=== PATIENT | female | born 1945 | race Caucasian/White ===

== ENCOUNTER → 2023-10-21 13:38 | Outpatient (REF) | payer MEDICARE, BC, SELFPAY | LOC: HWRAD 13:38 | PROVIDERS: ATTENDING PHYSICIAN Specialist; FAMILY PHYSICIAN Internal Medicine | DX: R31.0 Gross hematuria (principal) | CPT/HCPCS: 76857 ==

== ENCOUNTER 2023-10-24 21:29 | Inpatient (IN) | payer MEDICARE, BC, SELFPAY ==
[2023-10-24] VITALS (9 sets, daily range): BP systolic 143–183; BP diastolic 55–75; BMI 19.3
--- NOTE | 2023-10-24 18:35 | ED.GENMED ---
History of Present Illness
General
Chief Complaint: Heart Rate Problem
Source: patient
Exam Limitations: none
Time Seen by Provider: 10/24/23 18:15
Nursing documentation reviewed up to this point in time: agreed with
Travel History
Have you had any contact with someone who has COVID-19?: No
Do you have any symptoms of coronavirus? Fever > 100 degrees, chills, cough, shortness of breath, sore throat, loss of taste or smell, muscle aches, or headache?: No
History of Present Illness
History of Present Illness:
Patient presents to ED secondary to low heart rate noted at home, along with intermittent fatigue over the past 1 week. Today however, when she was outside walking, she felt shortness of breath, which prompted visit to ED. Patient has been talking
with her primary care physician regarding her low heart rate at home, in the 40s. She has an appointment with doctor of naprapathic medicine, Dr. Stephen in December. Denies chest pain. Denies nausea or vomiting. Denies loss of consciousness. Denies
diaphoresis. Patient is currently taking amlodipine 5 mg daily along with lisinopril. Of note, patient was admitted to the hospital last year secondary to low heart rate, which was treated with medication adjustment, namely discontinuation of
atenolol. Patient has not had any recurrent low heart rate episodes until this week.
Past History
Past History
ED Past Medical History: Arrthythmia (PVC's. SVT), HTN, Hypercholesterolemia and Other (Heart murmur)
ED Past Surgical History: None
Social History
Tobacco: Non-smoker
Alcohol: None
Personal:
Living: with family
Employment: Retired
Family History
Family History: Other (Father with pancreatic cancer, hypertension, brother with liver cancer)
Review of Systems
Review of Systems
Allergies reviewed?: Yes
All Other Systems: ROS reviewed and negative except as documented in HPI and ROS
Constitutional: Reports fatigue
EENT: Reports no symptoms
Respiratory: Reports trouble breathing
Cardiac: Reports no symptoms
ABD/GI: Reports no symptoms
: Reports no symptoms
Musculoskeletal: Reports no symptoms
Skin: Reports no symptoms
Neurological: Reports dizzy and weakness
Phy Exam
Physical Exam
Physical Exam:
Physical Exam
General: no apparent distress, not acutely ill. afebrile
Head: nc/at. eomi
Neck: supple. no meningeal signs.
Heart: bradycardic, no murmur. equal radial pulses.
Lungs: no acute respiratory distress. clear bilaterally
Abdomen: normal bowel sounds. not tender.
Neuro: alert and oriented. no focal neurological deficits
Skin: no rash
Psychiatric: well kept. interactive and cooperative
Extremities: no edema. no calf tenderness.
Course
Orders/Labs/Results
Orders:
Orders
10/24/23 Dinner
Cholesterol Lowering
At Your Request: Full Participation
Cholesterol Lowering: Sodium, 2 Gram
10/24/23 18:04
Electrocardiogram (*1) Urgent
Reason for Study: Bradycardia / Tachycardia
EKG- Treatment ONCE
10/24/23 18:50
Complete Blood Count/No Diff Urgent
Comprehensive Metabolic Panel Urgent
Magnesium Urgent
TSH Urgent
Troponin I Urgent
10/24/23 19:36
0.9% Sodium Chloride 500 ml [Nss] 500 ml IV BOLUS
10/24/23 19:57
Urinalysis Reflex To Culture Urgent
Date Specimen was Collected: 10/24/23
Time Specimen was Collected: 18:43
10/24/23 20:55
Admit/Transfer Patient As Directed
Co-Sign Provider:
Level of Care: Inpatient admission
Assign to:: IVU
Physician / Group: dr gato banegas
Diagnosis: 3:1 HB with symptomatic bradycardia
Reason for Hospitalization: close tele monitoring
poss pacemaker
Expected length of stay greater than two midnights?: Yes
ELOS- Estimated Length of Stay in days: 3
I certify the patient meets the requirements for IP care: Yes
10/24/23 20:56
Code Status As Directed
Resuscitation Status: Full Code
10/24/23 22:49
Activity As Directed
Activity Level: With Assistance
INT (Intravenous Needle Therapy) As Directed
Comment: maintain peripheral IV access
Intake/ Output As Directed
Frequency: Per unit guidelines
Pneumatic Compression Sleeves As Directed
Type: Knee high
Vital Signs As Directed
Frequency: q4h
Weight As Directed
Frequency: Once
DX Deep Vein Thrombosis Video Routine
10/25/23 06:00
Complete Blood Count/With Diff IN AM
Comprehensive Metabolic Panel IN AM
Abnormal Lab Results
10/24/23
18:50
BUN 18 H mg/dl
(7-17)
Glucose 102 H mg/dl
(70-99)
Magnesium 2.4 H mg/dl
(1.6-2.3)
AST 60 H U/L
(14-36)
ALT 49 H U/L
(0-35)
10/24/23 18:50
10/24/23 18:50
Vital Signs
Initial and Last Documented VS:
Initial Vital Signs
Temp Pulse Resp BP Pulse Ox
97.9 F 45 18 183/75 97
10/24/23 18:01 10/24/23 18:01 10/24/23 18:01 10/24/23 18:01 10/24/23 18:01
Last Documented Vital Signs
Temp Pulse Resp BP Pulse Ox
97.5 F 40 16 167/68 98
10/24/23 23:03 10/24/23 23:03 10/24/23 23:03 10/24/23 23:03 10/24/23 23:03
MDM/Problems Addressed
MDM/Problems Addressed:
Patient remains bradycardic in ED, along with 3-1 heart block noted on EKG. Otherwise, patient remains normotensive without any acute distress, during observation in ED.
Discussed with Dr. Banegas, cardiology, who agreed to admit the patient for further evaluation and treatment.
*EKG
Interpreted by ED Provider?: Yes
EKG Intrepretation Date: 10/24/23
Heart Rate: 43
Rate: bradycardiac
Rhythm: sinus
[place]: normal axis
Interval: second degree mobitz II
QRS Pattern: normal QRS
*Critical Care Note
Total Time (30-74mins, 75-104mins- exclusive of procedures): Not Applicable
ED Attending Note
-
Portions of this chart may have been created with voice recognition software.� Occasional wrong word or��sound alike� substitutions may have occurred due to the inherent limitations of voice recognition software.
Discharge Plan
Departure
Patient Disposition: Admit
Date of Disposition: 10/24/23
Time of Disposition: 20:38
Admit to: IVU
Presentation/result/management discussed w/ accepting MD/DO:
Condition: Fair
Discharge Problem:
Symptomatic bradycardia, AV heart block
Interventions
Interventions:
*Risk Screen - Suicide Last Done: 10/24/23 18:52
*General Assessment Last Done: 10/24/23 19:05
*Neglect/Abuse Screening Last Done: 10/24/23 18:52
ED- Fall Risk Assessment Last Done: 10/24/23 18:52
*ED COVID-19 Vaccine History Last Done: 10/24/23 18:52
*Nursing Disposition Last Done: 10/24/23 22:45
ED- Cardiac Assessment Last Done: 10/24/23 18:52
ED- Pulmonary Assessment Last Done: 10/24/23 19:05
Discharge Date and Time
Discharge Date/Time: 10/24/23 22:55
[2023-10-24 19:02] LABS: Hemoglobin 13.2 g/dL (12.0-16.0); Mean Corp Hgb Conc. 33.8 g/dL (33.0-37.0); Mean Corpuscular Hgb 30.8 pg (27.0-31.0); Mean Corpuscular Volume 91.1 fL (81.0-99.0); Mean Platelet Volume 10.3 fL (7.4-10.4); Platelet Count 213 10^3/uL (130-400); Red Blood Cell Count 4.28 10^6/uL (4.20-5.40); Red Cell Dist. Width 13.7 % (11.5-14.5); White Blood Cell Count 6.2 10^3/uL (4.8-10.8)
[2023-10-24 19:28] LABS: ALT (SGPT) 49 U/L (0-35); AST (SGOT) 60 U/L (14-36); Albumin 3.8 g/dl (3.5-5.0); Alkaline Phosphatase 104 U/L (38-126); Blood Urea Nitrogen 18 mg/dl (7-17); Calcium 9.6 mg/dl (8.4-10.2); Carbon Dioxide 29 mmol/L (22-30); Chloride 102 mmol/L (98-107); Estimated Creatinine Clearance 39 ml/min; Glucose 102 mg/dl (70-99); Magnesium 2.4 mg/dl (1.6-2.3); Potassium 4.1 mmol/L (3.5-5.1); Sodium 140 mmol/L (135-145); Total Bilirubin 0.6 mg/dl (0.2-1.3); Total Protein 6.5 g/dl (6.3-8.2); eGFR > 60.00
[2023-10-24 19:40] LABS: Troponin I < 0.012 ng/ml
[2023-10-24] MEDS: NSS 500 IV (19:56)
[2023-10-24 19:57] LABS: TSH 3.15 uIU/ml (0.47-4.68)
[2023-10-24 20:06] LABS: Urine Albumin Negative (Neg - Trace); Urine Bilirubin Negative (Negative); Urine Character Clear (Clear); Urine Color Yellow; Urine Glucose Negative (Negative); Urine Ketone Negative (Negative); Urine Leukocyte Negative (Negative); Urine Nitrite Negative (Negative); Urine Occult Blood Negative (Negative); Urine Specific Gravity 1.015 (<1.030); Urine Urobilinogen Negative (Neg - 1+)
--- NOTE | 2023-10-24 21:30 | HPS.HSE ---
Family Physician
-
Family Physician: Allan Vela
Chief Complaint
-
low HR
History of Present Illness
78 yo female with hx of HTN, SVT, HLD presents to ED secondary to low heart rate noted at home, along with intermittent fatigue over the past 1 week.� Today however, when she was outside walking, she felt shortness of breath, which prompted visit to
ED.� Patient has been talking with her primary care physician regarding her low heart rate at home, in the 40s.� She has an appointment with social insurance specialist, Dr. Stephen in December.� Denies chest pain.� Denies nausea or vomiting.� Denies loss of
consciousness.� Denies diaphoresis.� Patient is currently taking amlodipine 5 mg (was just recently increased from 2.5mg) daily along with lisinopril.�Was also on lisinopril/HCTZ but recently PCP d/c HTCZ. Of note, patient was admitted to the
hospital last year december secondary to low heart rate, which was treated with medication adjustment, namely discontinuation of atenolol.� Patient has not had any recurrent low heart rate episodes until this week.
Also of note, pt was formally a pt of Dr Minor, last seen in Aug 2023, but after his shelter, pt had decided to switch practices and see Dr Amanda Murillo, but no appt with her yet.
EKG :MARKED SINUS BRADYCARDIA ST and T WAVE ABNORMALITY, CONSIDER INFERIOR ISCHEMIA ABNORMAL ECG WHEN COMPARED WITH ECG OF 03-JAN-2023 19:17, VENT. RATE HAS DECREASED BY 23 BPM NON-SPECIFIC CHANGE IN ST SEGMENT IN INFERIOR LEADS T WAVE INVERSION NOW
EVIDENT IN INFERIOR LEADS.
While in room talking with pt HR was 60s-70s
Medical History
Past Medical History
Past Medical History: Reports Arrhythmia (svt, bradycardia 2:1 HB december 2022-resolved after dc of atenolol), HTN and Hypercholesterolemia
Past Surgical History: Reports None
Social History
Tobacco: Non-smoker
Alcohol: Occasional
Drug: None
Personal:
Living: With Family
Employment: Employed
Family History
Family History: Cancer (pancreatic-dad, brother -liver) and Hypertension (dad)
Allergies / Home Medications
Allergies reflects when Allergies were last updated in [id number].
Home Medications with original date entered in [id number]
Allergy/Medication List:
Allergies
Allergy/AdvReac Type Severity Reaction Status Date / Time
No Known Allergies Allergy Verified 10/24/23 18:00
Home Medications
atorvastatin 40 mg tablet 40 mg PO QPM
lisinopril 20 mg PO DAILY
ascorbic acid (vitamin C) 500 mg tablet (Vitamin C) 500 mg
biotin 2500 mg tablet PO DAILY
cholecalciferol (vitamin D3) 25 mcg (1,000 unit) tablet (Vitamin D3) 25 mcg PO DAILY
milk thistle 175 mg tablet 175 mg PO DAILY 12/30/22
zinc 50 mg tablet 50 mg PO DAILY 12/30/22
NIVA CBD
co Q10 100mg daily
Review of Systems
-
History Source: Patient
A 12 point ROS was completed and negative except as noted: Yes
Constitutional: Reports Fatigue
EENT: Reports No Symptoms
Respiratory: Reports No Symptoms
Cardiac: Reports Other (low HR in the 40s all week)
Abdomen/GI: Reports No Symptoms
: Reports No Symptoms
Musculoskeletal: Reports No Symptoms
Skin: Reports No Symptoms
Endocrine: Reports No Symptoms
Hematologic/Lymphatic: Reports No Symptoms
Psych: Reports No Symptoms
Physical Exam
Vital Signs
Vital Signs
Temp Pulse Resp BP Pulse Ox
97.9 F 81 16 151/70 98
10/24/23 18:01 10/24/23 21:00 10/24/23 21:00 10/24/23 21:00 10/24/23 21:00
Physical Exam
General: Well Developed, Well Nourished, No Apparent Distress, Comfortable and Conversant
HEENT: NormoCephalic, Moist mucous membranes and Good Dentition
Respiratory: Clear and Non Labored Respirations
Cardiac: S1/S2 and Regular Rhythm (HR 60-70s while in exam room with pt)
Breast: Deferred by me
GI: Soft, Non Tender and Normal Bowel Sounds
Rectal: Deferred by Provider
Genito-urinary: Clear Urine
Musculoskeletal: No Clubbing
Skin: Warm and Dry
Neuro: Awake and AO x 3
Psych: Anxious (worried about potentially needing pacemaker)
Laboratory Results
-
10/24/23 18:50
10/24/23 18:50
Laboratory Results
Total Bilirubin 0.6 mg/dl (0.2-1.3) 10/24/23 18:50
AST 60 U/L (14-36) H 10/24/23 18:50
ALT 49 U/L (0-35) H 10/24/23 18:50
Alkaline Phosphatase 104 U/L (38-126) 10/24/23 18:50
Troponin I < 0.012 ng/ml 10/24/23 18:50
Impression/Plan
-
IMPRESSION:
symptomatic bradycardia, second degree mobitz II
PLAN:
Admit to service of Dr Amanda Dimas
IVU
#bradycardia, symptomatic (fatigue), second degree mobitz II
- Had similar episodes in december 2022- but resolved after atenolol d/c
- ?related to recent increase in CCB amlodipine from 2.5mg to 5mg
-TSH normal
-hold bp meds (lisinopril, norvasc) and closely watch tele--> if tracy continues may need pacemaker.
-Low cholesterol diet
#HLD
- AST 60/ ALT 49--> hold lipitor for now
-repeat LFT
#HTN
-observe off BP meds
DVT proph: scd
Full code
--- NOTE | 2023-10-24 23:50 | PTCARENOTE ---
Received pt from ED. AOx3; pleasant. Tele- SB w/ 2nd deg HB. HR 30s. Pt offers no complaints at time. Oriented to unit and admission completed. Pneumatic compression devices on. Education provided. Verbalizes understanding. Pt currently in bed; call
janes w/in reach.
[2023-10-25] VITALS (7 sets, daily range): BP systolic 121–162; BP diastolic 59–98
[2023-10-25 06:02] LABS: % Basophils 1.2 % (0-2); % Eosinophils 2.3 % (0-6); % Immature Granulocytes 0.3 % (0-0.5); % Lymphocytes 40.1 % (20.5-51.1); % Monocytes 8.6 % (1.7-9.3); % Neutrophils 47.5 % (42.2-75.2); Absolute Basophils 0.1 10^3/uL (0-0.2); Absolute Eosinophils 0.2 10^3/uL (0-0.7); Absolute Lymphocytes 2.6 10^3/uL (1.2-3.4); Absolute Monocytes 0.6 10^3/uL (0.1-0.6); Hematocrit 35.5 % (37.0-47.0); Hemoglobin 12.1 g/dL (12.0-16.0); Mean Corp Hgb Conc. 34.1 g/dL (33.0-37.0); Mean Corpuscular Hgb 30.9 pg (27.0-31.0); Mean Corpuscular Volume 90.8 fL (81.0-99.0); Mean Platelet Volume 10.4 fL (7.4-10.4); Nucleated Red Blood Cells % 0 %; Platelet Count 204 10^3/uL (130-400); Red Blood Cell Count 3.91 10^6/uL (4.20-5.40); Red Cell Dist. Width 13.7 % (11.5-14.5); White Blood Cell Count 6.4 10^3/uL (4.8-10.8)
[2023-10-25 06:25] LABS: ALT (SGPT) 39 U/L (0-35); AST (SGOT) 48 U/L (14-36); Albumin 3.4 g/dl (3.5-5.0); Alkaline Phosphatase 84 U/L (38-126); Blood Urea Nitrogen 14 mg/dl (7-17); Carbon Dioxide 24 mmol/L (22-30); Chloride 105 mmol/L (98-107); Estimated Creatinine Clearance 48 ml/min; Glucose 85 mg/dl (70-99); Potassium 3.6 mmol/L (3.5-5.1); Sodium 139 mmol/L (135-145); Total Bilirubin 0.9 mg/dl (0.2-1.3); Total Protein 5.8 g/dl (6.3-8.2); eGFR > 60.00
--- NOTE | 2023-10-25 08:32 | CON.CAR ---
Consultation
Consultation Request
Date/Time Consultation Requested: October 25, 2023
Date/Time Consultation Performed: October 24, 2023
Requesting Provider: Emergency department
Performing Provider: Dr. Vega Dimas
Reason for Consultation: Symptomatic complete heart block
Medical History
-
Chief Complaint: Progressive fatigue and bradycardia
History of Present Illness:
70-year-old woman known to have intermittent type II heart block in the past presents to the emergency department now with progressive fatigue over the course of 1 week and marked bradycardia. Additionally she has had dyspnea on exertion over the
past week. Evaluation which included discussion with her primary care physician noted that she was bradycardic with heart rate in the 40s and was recommended she go to the emergency department. In the emergency department she is found to have
high-grade AV block with 3-1 AV conduction and a narrow QRS.
Past medical history:
-Type II second-degree AV block
-Hypertension
-SVT
-Dyslipidemia
Social History
Tobacco: Non-Smoker
Alcohol: Occasional
Drug: None
Personal:
Living: With Family
Employment: Employed
Family History
Family History: Reviewed & Not Pertinent
Allergies / Home Medications
Allergy/AdvReac Type Severity Reaction Status Date / Time
sulfamethoxazole Allergy Unknown Verified 10/25/23 01:39
[From Bactrim]
trimethoprim [From Bactrim] Allergy Unknown Verified 10/25/23 01:39
Medication Instructions Recorded Confirmed Type
atorvastatin 40 mg tablet 40 mg PO QPM High Cholesterol 08/11/17 10/24/23 History
ascorbic acid (vitamin C) 500 mg 500 mg PO DAILY Supplement 12/30/22 10/24/23 History
tablet (Vitamin C)
biotin 5 mg tablet 5 mg PO DAILY 12/30/22 10/24/23 History
cholecalciferol (vitamin D3) 25 25 mcg PO DAILY Supplement 12/30/22 10/24/23 History
mcg (1,000 unit) tablet (Vitamin
D3)
docusate sodium 100 mg capsule 100 mg PO HS Constipation 12/30/22 10/24/23 History
(Colace)
milk thistle 175 mg tablet 175 mg PO DAILY 12/30/22 10/24/23 History
zinc 50 mg tablet 50 mg PO DAILY 12/30/22 10/24/23 History
amlodipine 5 mg tablet 5 mg PO DAILY Blood Pressure 10/24/23 10/24/23 History
lisinopril 20 mg tablet 20 mg PO DAILY Blood Pressure 10/24/23 10/24/23 History
Review of Systems
-
History Source: Patient
All other systems: Negative unless noted
Constitutional: Fatigue (Progressive fatigue over the course of 1 week)
EENT: No Symptoms
Respiratory: Trouble Breathing (Dyspnea on exertion times approximately 1 week)
Cardiac: No Symptoms
Abdomen/GI: No Symptoms
: No Symptoms
Musculoskeletal: No Symptoms
Skin: No Symptoms
Neurological: No Symptoms
Endocrine: No Symptoms
Hematologic/Lymphatic: No Symptoms
Physical Exam
Vital Signs
Temp Pulse Resp BP Pulse Ox
97.9 F 49 20 146/65 97
10/25/23 07:36 10/25/23 07:00 10/25/23 07:36 10/25/23 05:02 10/25/23 07:36
Lab Results
10/25/23 05:08
10/25/23 05:08
Troponin I < 0.012 ng/ml 10/24/23 18:50
Physical Exam
General: Well Developed, Well Nourished, No Apparent Distress and Comfortable
HEENT: Normocephalic, Anicteric and Moist Mucous Membranes
Respiratory: Clear and Non Labored Respirations
Cardiac: S1/S2 (bradycardic), Regular Rhythm and Murmur (1/6 AHSM, no rubs, nl PMI)
Breast: Deferred by me
GI: Soft, Non Tender, Non Distended and Normal Bowel Sounds
Rectal: Deferred by Provider
Musculoskeletal: No Clubbing, No Cyanosis and No Edema
Skin: Warm and Dry
Neuro: Awake, Alert, Oriented, AO x 3 and No Motor Deficits
Psych: Calm
Impression / Plan
-
Impression:
-Symptomatic high-grade AV block
-Dyslipidemia
-Hypertension
Recommendations:
She has symptomatic type II second-degree AV block with no reversible cause. This seems to be progressive over the course of a couple of years given her prior history of intermittent type II second-degree AV block.
I had a long discussion with the patient and also her daughter who was on speaker phone. We discussed her indication for permanent pacemaker implantation. We discussed permanent pacemaker implantation procedure in detail as well as possible risks
and lifestyle impact of living with the pacemaker. All of their questions have been answered. Informed consent obtained by me. We will plan for permanent pacemaker implantation tomorrow.
Check echocardiogram in the morning
Maintain antihypertensive drug therapy
Maintain statin.
Data Reviewed
-
EKG: Tracing Personally Visualized and interpreted
Radiology: Image Personally Visualized and interpreted
Medical Tests (Nuc Med, Echo etc): Image Personally Visualized and interpreted
Labs: Labs Reviewed by me
Total Time Spent with Patient (in minutes): 80
--- NOTE | 2023-10-25 09:26 | PTCARENOTE ---
Rec'd pt from prev nsg shift AAOx3; Pt w/no c/o CP or SOB. Pt is anxious and a little tearful this AM re: prognosis & concern over getting a PPM. This RN went over restrictions & provided emotional support. MD was in to see pt & pt's concerns were
again discussed. Pt appears less anxious re: PPM procedure & is agreeable to the doctor's recommended plan of care. VS stable. HR is low in the 30's-40's. Pt reports no dizziness or lightheadedness w/that HR. Pt w/call marrero within reach & no addtl
needs at this time. Plan of care ongoing.
[2023-10-25] MEDS: ZESTRIL 20 MG PO (09:51)
[2023-10-25] MEDS: FLUSH (NSS) 1 FLUSH IV (09:52)
[2023-10-25] MEDS: LIPITOR 40 MG PO (17:22)
[2023-10-25] MEDS: NORVASC 5 MG PO (17:23)
--- NOTE | 2023-10-25 23:59 | PTCARENOTE ---
Second degree type 2 block. HR 30-40s. BP stable. Asymptomatic. Assessment per nursing flowsheet. NPO after midnight. Plan for PPM in AM. Questions answered about procedure.
[2023-10-26] VITALS (13 sets, daily range): BP systolic 128–185; BP diastolic 65–105
[2023-10-26] MEDS: ZESTRIL 20 MG PO (08:18)
--- NOTE | 2023-10-26 11:01 | CM ---
Reviewed chart. Met with Mrs. Candelario to review discharge plans. She states prior to admission she resides with her spouse in a two story home with three steps to enter. She states she has a full flight of steps to get to bedroom/full bathroom.
She states she has a powder room on the first floor. She states prior to admission she was independent with ambulation and adls. She states she does not have any DME in the home. She states she has a prescription plan and uses [facility].
Medical work-up in progress. The discharge plan is to return home with her spouse when medically stable.
[2023-10-26] MEDS: NORVASC 5 MG PO (11:14)
--- NOTE | 2023-10-26 13:59 | ITS.CL.PACE ---
Lead Customer Service Representative - Pacemaker Implant
Pacemaker Implant
Procedure Report:
PACEMAKER IMPLANT REPORT
Primary Care Provider: Dr Allan Vela
Date of Procedure: October 26, 2023
Procedure:
Implantation of dual-chamber permanent pacemaker utilizing the left bundle branch for conduction system pacing
Indication/Diagnosis:
Non-reversible symptomatic bradycardia due to second atrioventricular block
After informed consent was obtained, 'time out' was called and confirmed, the patient was prepped and draped in a sterile fashion. Lidocaine with epi was used for local anesthesia. Central venous access was obtained via subclavian venipuncture. An
incision was made along the left chest and a pre-pectoral pocket was formed. Using a Seldinger technique and peel-away sheaths, the pacing leads were placed under fluoroscopic guidance.
Fluoroscopy was used to determine likely anatomic site for left bundle branch pacing. The Medtronic C315 sheath was used to deliver the Medtronic 3830 Selectsecure pacing lead with the helix exposed just exposed from the sheath tip during continuous
monitoring when pacemapping the septum during gentle clockwise rotation to obtain a paced QRS morphology of a W pattern in lead V1. Once the suspected optimal site was identified, lead deployment was performed with several rapid rotations as paced
QRS morphology was intermittently monitored until a paced QRS complex in lead V1 demonstrated development of an R wave (QR).
Unipolar pacing impedance dropped by approximately 200 ohms suggesting it had reached the left ventricular subendocardial.
Stable VEgm injury current is present throughout lead position and at end of case.
Final unipolar pacing impedance is 900 Ohms
Unipolar pacing threshold is stable at 1 V @ 0.4 ms.
Final conduction system paced QRS complex duration is 95 ms
LVAT is 69 ms and peak V5 -> peak V1 timing is 42 ms
Right atrial lead was placed at the RAA.
Once testing (see below) showed adequate and stable function, the leads were secured using the suture sleeves. The pocket was liberally irrigated with antibiotic solution. The leads were connected to the generator header and the leads and
generator were placed within the pocket. Fluoroscopy confirmed stable lead position. The pocket was closed in the typical fashion.
Fluoroscopy was used to guide lead placement.
IMPLANTS:
Medtronic [id number], SN: [id number], Left Pectoral
RA: Medtronic 5076-45, SN: [id number], RAA
RV: Medtronic 3830 , SN:[id number], Interventricular septum at LBB
DEVICE TESTING:
Sensing: RA 1.4 mV, RV 9 mV
Capture: RA 0.5 V@0.4ms, RV 0.8 V@0.4ms
Ohms: RA 507, RV 890
FINAL PROGRAMMING
Sergei Pacing: DDD 60-130 ppm
COMPLICATIONS:
None
CONCLUSIONS:
1: Successful implant of dual chamber permanent pacemaker utilizing Left Bundle Branch conduction system capture for pacing.
RECOMMENDATIONS:
1. Post-op care (tele, CXR, IV abx)
2. In-Office wound check in 5-7 days
Copy to:
Dr Allna Vela
--- NOTE | 2023-10-26 16:02 | PTCARENOTE ---
pt left for PPM. report given to Stacey.
--- NOTE | 2023-10-26 18:34 | PTCARENOTE ---
received pt from recovery area. Aox3, no complaints of pain or discomfort. left arm immobilizer and dressing CDI. Educated on expected OOB time. Call marrero within reach
[2023-10-26] MEDS: LIPITOR 40 MG PO (19:16)
[2023-10-26] MEDS: TYLENOL 650 MG PO (19:16)
[2023-10-26] MEDS: ULTRAM 50 MG PO (21:38)
[2023-10-26] MEDS: ANCEF 5 IV (22:54)
--- NOTE | 2023-10-26 23:40 | PTCARENOTE ---
Addendum entered by Julio Valentin RN 10/27/23 05:08:
Upon return from pacemaker placement, pt wasn't admitted in the patient information center and BP did not come over to the computer. BP at 1826, 1830, 1845, 1900, and 1930 copied from monitor in room and manually put in.
Original Note:
Pt received start of shift, HR V-paced 70s-90s. BP stable. L upper chest dressing CDI. Pt bedrest for 1 hour post-op then ambulated w/ RN assistance to bathroom. Pt voided. Pt c/o 8/10 pain at pacemaker insertion site, PRN tylenol administered. new
rating 7/10. CVPA Ed Alcides notified, 50mg Ultram ordered and administered. Effective, new pain rating 4/10. Pt educated on activity restrictions in regards to pacemaker insertion and L upper extremity. Pt states understanding. Pt denies any CP,
SOB, or lightheadedness/dizziness at this time. Informed to notify RN if any changes, call marrero within reach.
[2023-10-27 03:54] VITALS: BP 148/81
[2023-10-27 04:36] LABS: Hematocrit 36.9 % (37.0-47.0); Hemoglobin 12.4 g/dL (12.0-16.0); Mean Corp Hgb Conc. 33.6 g/dL (33.0-37.0); Mean Corpuscular Hgb 31.1 pg (27.0-31.0); Mean Corpuscular Volume 92.5 fL (81.0-99.0); Mean Platelet Volume 10.1 fL (7.4-10.4); Platelet Count 178 10^3/uL (130-400); Red Blood Cell Count 3.99 10^6/uL (4.20-5.40); Red Cell Dist. Width 13.4 % (11.5-14.5)
[2023-10-27 05:02] LABS: Blood Urea Nitrogen 25 mg/dl (7-17); Calcium 8.8 mg/dl (8.4-10.2); Carbon Dioxide 27 mmol/L (22-30); Chloride 103 mmol/L (98-107); Estimated Creatinine Clearance 38 ml/min; Glucose 89 mg/dl (70-99); Magnesium 2.1 mg/dl (1.6-2.3); Potassium 3.7 mmol/L (3.5-5.1); Sodium 137 mmol/L (135-145); eGFR > 60.00
[2023-10-27] MEDS: ANCEF 5 IV (06:17)
[2023-10-27 07:05] VITALS: BP 136/88
--- NOTE | 2023-10-27 08:27 | PTCARENOTE ---
Rec'd pt this AM AAOx3 w/no c/o CP or SOB; pt does c/o 3/10 L chest wall pain at her new pacemaker insertion site. PO Tylenol administered as ordered. Pt's VS stable. Pt is V paced on telemetry monitoring. Pt w/call marrero within reach & no addtl
needs at this time. Plan of care ongoing.
[2023-10-27] MEDS: NORVASC 5 MG PO (09:01)
[2023-10-27] MEDS: ZESTRIL 20 MG PO (09:02)
[2023-10-27] MEDS: ULTRAM 50 MG PO (09:02)
[2023-10-27 10:25] VITALS: BP 135/81
[2023-10-27 11:02] VITALS: BP 165/96
--- NOTE | 2023-10-27 11:20 | PTCARENOTE ---
Pt w/HR in the 150's-160's. This RN in to see pt & pt talking on the phone w/her daughter. Pt asymptomatic w/no CP or palpitations. BP checked & pt 165/96 w/HR now in the 110's. Pt now anxious from nursing coming into the room quickly. Notified
Cardiology & they will be in to see pt shortly.
--- NOTE | 2023-10-27 12:05 | W.PN.CARDCBS ---
Addendum entered and electronically signed by Julio Bustamante DO 10/27/23 14:22:
I saw and examined the patient.
The Durability Engineer's note was reviewed and I agree with the note.
Comment:
Plan:
Reviewed pacemaker and instructions.
Stable cv status
Outpt follow up arranged
Family updated
Stable for d/c.
Original Note:
Today's Communication / Plan
-
D/C to home today
If BP remains elevated can restart atenolol
Impression / Plan
-
Dr. Allan Vela
Cardiology: Previously followed with Dr. Melgoza (retiring) and now asking to follow up with Dr. Amanda Dimas
Impression:
Admitted with symptomatic high-grade AV block 10/24/23
s/p [employer] DC PPM 10/26/23
Dyslipidemia
Hypertension
Echo 10/26/23: EF 55-60%, mild to mod MR
Plan:
-Patient had a Medtronic DC PPM placed 10/26/23 for symptomatic high-grade AV block that was seen on admission to [facility] 10/24/23.
-[employer] Rep checked PPM in the room while I was present 10/27/23 and there was normal device and lead function. Patient and daughter over the phone reassured.
-Reviewed limb restrictions with patient and daughter.
-Outpatient doses of lisinopril 20 mg daily and amlodipine 5 mg daily have been continued.
-Patient was previously on atenolol, but this was changed to amlodipine during and ER visit last year when she was noted to be bradycardic. If BP remains elevated can restart atenolol.
-D/C to home 10/27/23.
Progress Note - Thermostat Maker
Subjective
Date of Service: October 27, 2023
She feels well, some aching, but no sharp pains at implant site
Objective
Labs:
10/27/23 04:03
10/27/23 04:03
Labs
Hgb 12.4 g/dL (12.0-16.0) 10/27/23 04:03
Hct 36.9 % (37.0-47.0) L 10/27/23 04:03
Plt Count 178 10^3/uL (130-400) 10/27/23 04:03
Sodium 137 mmol/L (135-145) 10/27/23 04:03
Potassium 3.7 mmol/L (3.5-5.1) 10/27/23 04:03
BUN 25 mg/dl (7-17) H 10/27/23 04:03
Creatinine 0.9 mg/dL (0.6-1.0) 10/27/23 04:03
Glucose 89 mg/dl (70-99) 10/27/23 04:03
Troponins
10/24/23
18:50
Troponin I < 0.012
Vital Signs and I&O:
Vital Signs
Temp Pulse Resp BP Pulse Ox
98.0 F 114 18 165/96 95
10/27/23 10:25 10/27/23 11:02 10/27/23 10:25 10/27/23 11:02 10/27/23 10:25
Vital Signs
Temp Pulse Resp BP Pulse Ox
98.0 F 114 18 165/96 95
10/27/23 10:25 10/27/23 11:02 10/27/23 10:25 10/27/23 11:02 10/27/23 10:25
Intake & Output
10/25/23 10/26/23 10/27/23 10/28/23
06:59 06:59 06:59 06:59
Intake Total 150 / 150 480 / 480 480 / 480
Balance 150 / 150 480 / 480 480 / 480
Physical Exam
Physical Exam
GEN: NAD. AAOx3
HEENT: EOMI
LUNGS: CTA B/L
CV: Reg, / syst LSB. Left ACW implant site bulky pressure dressing removed to reveal intact Aquacel without evidence of bleeding or bruising. No hematoma.
ABD: soft, BS+
EXT: No edema
NEURO: Gross non-focal
SKIN: No rash
--- NOTE | 2023-10-27 14:21 | W.DS.TRANS ---
DC Summary - [employer] Coordinator
-
Discharge Instructions:
Discharge Diagnosis/Procedures Pacemaker implant
Diet As tolerated
Activity Other activity
Driving Restrictions No driving for 1 week
Bathing Restrictions OK to Shower
Instructions:
Stand-Alone Forms: DC Inst - Implanted Device
Changes to Home Medications: No
Discharge Medications:
DC Medications w/original date entered in [employer]
atorvastatin 40 mg tablet 40 mg PO QPM High Cholesterol 08/11/17
ascorbic acid (vitamin C) 500 mg tablet (Vitamin C) 500 mg PO DAILY Supplement 12/30/22
biotin 5 mg tablet 5 mg PO DAILY 12/30/22
cholecalciferol (vitamin D3) 25 mcg (1,000 unit) tablet (Vitamin D3) 25 mcg PO DAILY Supplement 12/30/22
docusate sodium 100 mg capsule (Colace) 100 mg PO HS Constipation 12/30/22
milk thistle 175 mg tablet 175 mg PO DAILY 12/30/22
zinc 50 mg tablet 50 mg PO DAILY 12/30/22
amlodipine 5 mg tablet 5 mg PO DAILY Blood Pressure 10/24/23
lisinopril 20 mg tablet 20 mg PO DAILY Blood Pressure 10/24/23
Home Medication Changes
Pending Results: No
[2023-10-27 15:06] VITALS: BP 155/82
[2023-10-27] MEDS: TYLENOL 650 MG PO (16:08)
--- NOTE | 2023-10-27 17:17 | PTCARENOTE ---
Pt D/C'd to w/daughter providing transportation. Pt left w/D/C instructions, personal belongings incl cell phone. Pt's IV line & telemetry removed & pt transported to lobby via wheelchair to daughter's car.
== END 2023-10-27 17:20 | disposition home or self-care (01) | DRG 244 ==
LOC: IVU 21:29
PROVIDERS: Nurse Practitioner; Nurse Practitioner Family; ADMITTING PHYSICIAN Internal Medicine Cardiovascular Disease; EMERGENCY PHYSICIAN Emergency Medicine; FAMILY PHYSICIAN Internal Medicine; OTHER PHYSICIAN Internal Medicine Cardiovascular Disease
PROC: 02HK3JZ Insertion of Pacemaker Lead into Right Ventricle, Percutaneous Approach (ICD-10-PCS; 2023-10-26)
PROC: 02H63JZ Insertion of Pacemaker Lead into Right Atrium, Percutaneous Approach (ICD-10-PCS; 2023-10-26)
PROC: 0JH606Z Insertion of Pacemaker, Dual Chamber into Chest Subcutaneous Tissue and Fascia, Open Approach (ICD-10-PCS; 2023-10-26)
DX: I44.2 Atrioventricular block, complete (principal); R00.1 Bradycardia, unspecified; R53.83 Other fatigue; E78.00 Pure hypercholesterolemia, unspecified; I10 Essential (primary) hypertension; I34.0 Nonrheumatic mitral (valve) insufficiency; Z80.0 Family history of malignant neoplasm of digestive organs; Z82.49 Family history of ischemic heart disease and other diseases of the circulatory system; Z88.2 Allergy status to sulfonamides; Z88.1 Allergy status to other antibiotic agents
CPT/HCPCS: 33208; 71045; 76857; 80048; 80053; 81003; 83735; 84443; 84484; 85025; 85027; 93005; 93306; 99285; C1769; C1785; C1887; C1892; C1898; Q9967

== ENCOUNTER → 2024-07-15 13:04 | Outpatient (REF) | payer MEDICARE, BC, SELFPAY | LOC: HWRAD 13:04 | PROVIDERS: ATTENDING PHYSICIAN Obstetrics & Gynecology Gynecology; FAMILY PHYSICIAN Internal Medicine Geriatric Medicine | DX: N83.209 Unspecified ovarian cyst, unspecified side (principal) | CPT/HCPCS: 76830; 76856 ==

== ENCOUNTER → 2024-09-23 12:46 | Outpatient (REF) | payer MEDICARE, BC, SELFPAY | LOC: HWWDC 12:46 | PROVIDERS: ATTENDING PHYSICIAN Obstetrics & Gynecology Gynecology; FAMILY PHYSICIAN Internal Medicine Geriatric Medicine | DX: Z12.31 Encounter for screening mammogram for malignant neoplasm of breast (principal) | CPT/HCPCS: 77063; 77067 ==